=== PATIENT | female | born 1935 | race Caucasian/White ===

== ENCOUNTER 2022-05-08 16:28 | Emergency (ER) | payer MEDICARE ==
--- NOTE | 2022-05-08 16:37 | ERPHSYRPT ---
- History of Present Illness Time Seen by Provider: 05/08/22 16:37 Source: patient, family Exam Limitations: no limitations Physician History: This is an 86-year-old white female who is alert and oriented and states that she walked with a cane and lost her balance falling backwards and hit her head. She did not lose consciousness. There is been no visual changes. However there has been a hematoma that enlarged in the back of her head and family became concerned about this. She is not on any anticoagulation therapy. Occurred: this morning Reason for Fall: lost balance, fell from standing pos Injuries/Pain Location: head Loss of Consciousness: no loss of consciousness Quality: aching Severity of Pain-Max: mild Severity of Pain-Current: mild Modifying Factors: Improves With: nothing Associated Symptoms (Fall): denies symptoms Allergies/Adverse Reactions: prednisone Adverse Reaction (Verified 05/08/22 16:52) Travel Risk - International Travel Have you traveled outside of the country in past 3 weeks: No - Coronavirus Screening Are you exhibiting any of the following symptoms?: No Close contact with a COVID-19 positive Pt in past 14-21 Days: No - Review of Systems Constitutional: No Symptoms Eyes: No Symptoms Ears, Nose, & Throat: No Symptoms Respiratory: No Symptoms Cardiac: No Symptoms Abdominal/Gastrointestinal: No Symptoms Genitourinary Symptoms: No Symptoms Musculoskeletal: No Symptoms Skin: Other (Occipital scalp hematoma) Neurological: No Symptoms Psychological: No Symptoms Endocrine: No Symptoms Hematologic/Lymphatic: No Symptoms Immunological/Allergic: No Symptoms All Other Systems: Reviewed and Negative - Past Medical History Pertinent Past Medical History: Yes - Past Surgical History Past Surgical History: Yes - Nursing Vital Signs Nursing Vital Signs: Initial Vital Signs Temperature 96.8 F 05/08/22 16:40 Pulse Rate 78 05/08/22 16:40 Respiratory Rate 18 05/08/22 16:40 Blood Pressure 175/71 05/08/22 16:40 O2 Sat by Pulse Oximetry 97 05/08/22 16:40 Pain Scale Pain Intensity 7 - Gila Coma Score Best Eye Response (Antwan): (4) open spontaneously Best Verbal Response (Gila): (5) oriented Best Motor Response (Antwan): (6) obeys commands Antwan Total: 15 - Physical Exam General Appearance: no apparent distress, alert Head Injury: swelling, tenderness (Posterior scalp hematoma without laceration) Eye Exam: PERRL/EOMI, eyes nml inspection ENT Exam: airway nml, nml ext.inspection Neck Exam: supple, trachea midline, full range of motion, normal alignment, normal inspection Respiratory/Chest Exam: No chest tenderness, No respiratory distress, No ecch ymosis, No crepitus Gastrointestinal Exam: No tenderness Rectal Exam: not done Back Exam: normal inspection, normal range of motion, No CVA tenderness, No vertebral tenderness Extremity Exam: normal inspection, normal range of motion, pelvis stable Neurologic Exam: alert, oriented x 3, cooperative, high tension tester II-XII nml as tested, normal mood/affect, nml cerebellar function, nml station & gait, sensation nml Skin Exam: other (Posterior scalp hematoma.) SpO2 Interpretation: normal O2 Delivery: Room Air - Course Nursing assessment & vital signs reviewed: Yes Ordered Tests: Active Orders 24 hr Category Date Time Status HEAD WITHOUT CONTRAST [CT] Stat Exams 05/08/22 17:29 Taken - Progress Progress: unchanged Progress Note: 05/08/22 18:41 CAT scan of the head without contrast shows no intracranial abnormality. There is no skull fracture. There is hematoma in the vertex of the scalp. Counseled pt/family regarding: diagnosis, need for follow-up, rad results - Departure Departure Disposition: Home Clinical Impression: Head injury, Scalp hematoma Condition: Stable Critical Care Time: No Referrals: GARRETT LUNSFORD [Primary Care Provider] - Follow up/PCP as directed Additional Instructions: Ice pack to area 2-3 times a day for the next 48 hours. Avoid sedating medication for the next 24 hours. If there are no allergies or contraindications, may use Tylenol and ibuprofen for pain control. Return to the emergency department if symptoms worsen.
[2022-05-08 18:09] VITALS: BP 158/60; PULSE 68; O2SAT 93
--- NOTE | 2022-05-09 08:35 | XRAY ---
Indication: Posterior head injury. Multiple contiguous axial images obtained through the head without contrast. Comparison: None Age-appropriate global atrophy and minimal periventricular degenerative micro-ischemia bilaterally. No acute intracranial hemorrhage, abnormal extra-axial fluid collection, or mass effect. Fourth ventricle is midline without hydrocephalus. Small posterior vertex scalp hematoma. Bony calvarium intact. Visualized paranasal sinuses and mastoid air cells are clear. Impression: Posterior scalp hematoma. Otherwise nonacute senile brain.
== END 2022-05-08 18:53 | disposition home or self-care (01) ==
LOC: ED 16:28
DX: S09.90XA Unspecified injury of head, initial encounter (principal); S00.03XA Contusion of scalp, initial encounter; W18.39XA Other fall on same level, initial encounter; Y93.01 Activity, walking, marching and hiking
CPT/HCPCS: 70450; 99283